=== PATIENT | male | born 1990 | race Caucasian/White ===

== ENCOUNTER 2017-12-14 16:03 | Emergency (ER) | payer MEDICAID | END 2017-12-14 18:30 | disposition home or self-care (01) | LOC: FTE 16:03 | DX: R21 Rash and other nonspecific skin eruption (principal); F17.210 Nicotine dependence, cigarettes, uncomplicated | CPT/HCPCS: 99283; Z7502 ==

== ENCOUNTER 2018-02-05 16:38 | Emergency (ER) | payer MEDICAID | END 2018-02-05 17:45 | disposition home or self-care (01) | LOC: E/R 16:38 | DX: R21 Rash and other nonspecific skin eruption (principal); Z87.891 Personal history of nicotine dependence | CPT/HCPCS: 99283; Z7502 ==

== ENCOUNTER 2019-01-02 11:58 | Emergency (ER) | payer MEDICAID | END 2019-01-02 12:39 | disposition home or self-care (01) | LOC: FTE 11:58 | DX: R21 Rash and other nonspecific skin eruption (principal); F17.210 Nicotine dependence, cigarettes, uncomplicated | CPT/HCPCS: 99283; Z7502 ==

== ENCOUNTER 2019-06-12 17:54 | Emergency (ER) | payer MEDICAID ==
[2019-06-12] MEDS: ACETAMINOPHEN 325 MG TAB PO (19:34)
[2019-06-12 20:04] LABS: ADD MAN DIFF? NO
[2019-06-12 20:10] LABS: WHITE BLOOD COUNT 9.3 10^3/ul (4.8-10.8)
[2019-06-12 20:10] LABS: BASOPHIL # 0.1 10^3/ul (0.0-0.1); BASOPHILS % 0.6 % (0.0-2.0); EOSINOPHILS # 0.1 10^3/ul (0.0-0.5); EOSINOPHILS % 1.2 % (0.0-7.0); HEMATOCRIT 45.5 % (42.0-52.0); LYMPHOCYTES # 2.9 10^3/ul (0.8-2.9); LYMPHOCYTES % 31.3 % (15.0-51.0); MEAN CORPUSCULAR HEMOGLOBIN 31.2 pg (29.0-33.0); MEAN CORPUSCULAR HGB CONC 35.2 g/dl (32.0-37.0); MEAN CORPUSCULAR VOLUME 88.7 fl (82.0-101.0); MEAN PLATELET VOLUME 10.2 fl (7.4-10.4); MONOCYTES % 10.9 % (0.0-11.0); NEUTROPHIL # 5.1 10^3/ul (1.6-7.5); NEUTROPHILS % 55.1 % (39.0-77.0); PLATELET COUNT 293 10^3/UL (140-415); RED BLOOD COUNT 5.13 10^6/ul (4.70-6.10); RED CELL DISTRIBUTION WIDTH 11.8 % (11.5-14.5)
[2019-06-12 20:24] LABS: ANION GAP 9 (5-13); BLOOD UREA NITROGEN 20 mg/dl (7-20); CALCIUM 9.6 mg/dl (8.4-10.2); CARBON DIOXIDE 25 mmol/L (21-31); CHLORIDE 108 mmol/L (97-110); CREATININE 0.85 mg/dl (0.61-1.24); Estimated GFR > 60 mL/min (>60); GLUCOSE 94 mg/dl (70-220); SODIUM 142 mmol/L (135-144)
[2019-06-12] MEDS: SOD CHLORIDE 0.9% 100 ML (20:59)
[2019-06-12] MEDS: IOHEXOL 100 ML (20:59)
== END 2019-06-12 22:45 | disposition home or self-care (01) ==
LOC: FTE 17:54
DX: S09.90XA Unspecified injury of head, initial encounter (principal); I67.1 Cerebral aneurysm, nonruptured; W22.8XXA Striking against or struck by other objects, initial encounter; Y92.9 Unspecified place or not applicable; Z87.891 Personal history of nicotine dependence
CPT/HCPCS: 36415; 70450; 70496; 80048; 85025; 99284-25

== ENCOUNTER 2019-07-28 11:30 | Emergency (ER) | payer MEDICAID ==
[2019-07-28 12:19] LABS: ADD MAN DIFF? NO
[2019-07-28 12:21] LABS: WHITE BLOOD COUNT 7.6 10^3/ul (4.8-10.8)
[2019-07-28 12:21] LABS: BASOPHIL # 0.1 10^3/ul (0.0-0.1); BASOPHILS % 0.7 % (0.0-2.0); EOSINOPHILS # 0.2 10^3/ul (0.0-0.5); EOSINOPHILS % 2.2 % (0.0-7.0); HEMATOCRIT 48.8 % (42.0-52.0); HEMOGLOBIN 17.1 g/dl (14.0-18.0); LYMPHOCYTES # 2.2 10^3/ul (0.8-2.9); LYMPHOCYTES % 28.6 % (15.0-51.0); MEAN CORPUSCULAR HEMOGLOBIN 30.3 pg (29.0-33.0); MEAN CORPUSCULAR VOLUME 86.5 fl (82.0-101.0); MEAN PLATELET VOLUME 9.9 fl (7.4-10.4); MONOCYTE # 0.8 10^3/ul (0.3-0.9); MONOCYTES % 11.1 % (0.0-11.0); NEUTROPHIL # 4.3 10^3/ul (1.6-7.5); NEUTROPHILS % 56.5 % (39.0-77.0); PLATELET COUNT 284 10^3/UL (140-415); RED BLOOD COUNT 5.64 10^6/ul (4.70-6.10); RED CELL DISTRIBUTION WIDTH 11.6 % (11.5-14.5)
[2019-07-28] MEDS: ONDANSETRON 4 MG INJ IV (12:22)
[2019-07-28] MEDS: morphine 4 MG/ML VIAL IV (12:23)
[2019-07-28] MEDS: SOD CHLORIDE 0.9% 1,000 ML IV (12:23)
[2019-07-28 12:43] LABS: ANION GAP 10 (5-13); BLOOD UREA NITROGEN 15 mg/dl (7-20); CALCIUM 9.8 mg/dl (8.4-10.2); CARBON DIOXIDE 23 mmol/L (21-31); CHLORIDE 104 mmol/L (97-110); CREATININE 0.74 mg/dl (0.61-1.24); Estimated GFR > 60 mL/min (>60); GLUCOSE 100 mg/dl (70-220); POTASSIUM 4.3 mmol/L (3.5-5.1); SODIUM 137 mmol/L (135-144)
[2019-07-28 12:45] LABS: INR 0.91; PROTIME 12.4 Sec (11.9-14.9)
[2019-07-28 12:46] LABS: PARTIAL THROMBOPLASTIN TIME 28.3 Sec (23.0-35.0)
[2019-07-28] MEDS: IOHEXOL 100 ML (12:57)
[2019-07-28] MEDS: SOD CHLORIDE 0.9% 100 ML (12:57)
== END 2019-07-28 15:27 | disposition home or self-care (01) ==
LOC: E/R 11:30
DX: I67.1 Cerebral aneurysm, nonruptured (principal); R40.2142 Coma scale, eyes open, spontaneous, at arrival to emergency department; R40.2362 Coma scale, best motor response, obeys commands, at arrival to emergency department; R40.2252 Coma scale, best verbal response, oriented, at arrival to emergency department; Z87.891 Personal history of nicotine dependence
CPT/HCPCS: 36415; 70450; 70496; 80048; 85025; 85610; 85730; 86850; 86900; 86901; 96374; 96375; 99285-25